=== PATIENT | male | born 1990 ===

== ENCOUNTER 2018-03-17 22:58 | Inpatient (IN) | payer OTHER ==
[2018-03-18 00:01] VITALS: BMI 34.8
--- NOTE | 2018-03-18 00:15 | ED PDOC ---
Arrival/HPI - General Historian: Patient - History of Present Illness Narrative History of Present Illness (Text): 03/18/18 00:10 27 y/o male, no significant pmh, nkda, c/o LLQ pain started today with fever. Pt. has LLQ pain, aching pain, on and off, no night sweat, no rash, no dizziness no change in vision, no palpitation, no other medical or psychological complaints. <Luis Au - Last Filed: 03/18/18 03:06> <Rayshawn Saunders - Last Filed: 03/18/18 04:58> - General Chief Complaint: Abdominal Pain Past Medical History - Provider Review Nursing Documentation Reviewed: Yes - Psychiatric Hx Substance Use: No - Anesthesia Hx Anesthesia: No <Luis Au - Last Filed: 03/18/18 03:06> Family/Social History - Physician Review Nursing Documentation Reviewed: Yes Family/Social History: Unknown Family HX Smoking Status: Never Smoked Hx Alcohol Use: No Hx Substance Use: No <Luis Au - Last Filed: 03/18/18 03:06> Allergies/Home Meds <Luis Au - Last Filed: 03/18/18 03:06> <Rayshawn Saunders - Last Filed: 03/18/18 04:58> Allergies/Adverse Reactions: Allergies No Known Allergies Allergy (Verified 03/18/18 00:02) Home Medications: Home Meds Medication Instructions Recorded Confirmed No Known Home Med 03/18/18 03/18/18 Review of Systems - Review of Systems Constitutional: Fatigue, Fevers Eyes: absent: Vision Changes ENT: absent: Hearing Changes Respiratory: absent: SOB, Cough Cardiovascular: absent: Chest Pain Gastrointestinal: Abdominal Pain. absent: Diarrhea, Nausea, Vomiting Musculoskeletal: absent: Arthralgias, Back Pain Skin: absent: Rash, Pruritis Neurological: absent: Headache Psychiatric: absent: Anxiety, Depression, Suicidal Ideation <Luis Au - Last Filed: 03/18/18 03:06> Physical Exam Vital Signs Reviewed: Yes Vital Signs Temp Pulse Resp BP Pulse Ox 03/18/18 00:04 100.0 F H 115 H 18 132/55 L 96 Temperature: Febrile Blood Pressure: Hypertensive Pulse: Tachycardic Respiratory Rate: Normal Appearance: Positive for: Well-Appearing, Non-Toxic, Comfortable Pain Distress: Moderate Mental Status: Positive for: Alert and Oriented X 3 - Systems Exam Head: Present: Atraumatic, Normocephalic Pupils: Present: PERRL Extroacular Muscles: Present: EOMI Conjunctiva: Present: Normal Ears: Present: NORMAL TM, Normal Canal. No: Erythema Mouth: Present: Moist Mucous Membranes Pharnyx: No: ERYTHEMA, EXUDATE, TONSILS ENLARGED Nose (External): Present: Atraumatic. No: Abrasion, Contusion Nose (Internal): Present: Normal Inspection, No Active Bleeding. No: Rhinorrhea, Septal Hematoma, Epistaxis Neck: Present: Normal Range of Motion, Trachea Midline. No: Meningeal Signs, MIDLINE TENDERNESS, Paraspinal Tenderness, Lymphadenopathy Respiratory/Chest: Present: Clear to Auscultation, Good Air Exchange. No: Respiratory Distress, Accessory Muscle Use Cardiovascular: Present: Regular Rate and Rhythm, Normal S1, S2. No: Murmurs Abdomen: Present: Tenderness (LLQ region). No: Distention, Peritoneal Signs, Rebound, Guarding Back: Present: Normal Inspection. No: CVA Tenderness, Midline Tenderness, Paraspinal Tenderness, Pain with Leg Raise, Decubitus Ulcer Upper Extremity: Present: Normal Inspection, Neurovascularly Intact, Capillary Refill < 2s. No: Cyanosis, Edema, Deformity Lower Extremity: Present: Normal Inspection, Normal ROM, Neurovascularly Intact, Capillary Refill < 2 s. No: Edema, Deformity Neurological: Present: GCS=15, CN II-XII Intact, Speech Normal, Motor Func Grossly Intact, Gait Normal, Memory Normal Skin: Present: Warm, Dry, Normal Color. No: Rashes Psychiatric: Present: Alert, Oriented x 3, Normal Insight, Normal Concentration <Luis Au - Last Filed: 03/18/18 03:06> Vital Signs Temp Pulse Resp BP Pulse Ox 03/18/18 00:30 100.0 F H 03/18/18 00:04 100.0 F H 115 H 18 132/55 L 96 <Rayshawn Saunders - Last Filed: 03/18/18 04:58> Medical Decision Making ED Course and Treatment: 03/18/18 00:19 -labs -CT -IVF/pepcid/tylenol -Observe and reassess 03/18/18 01:28 -another IVF ordered. 03/18/18 03:06 -Rapid flu is negative -Labs show no acute findings except wbc 15.4 -Mg 1.4, low, mgsulfate 2gm IV ordered -Lipase within normal limit. -UA show no UTI. -CT abdomen and pelvis ordered and pending results -Pt. feels better, vitally stable with fever resolved, nontachycardia -Case discussed in detail with the attending Dr. Saunders, he will follow up the pending radiology result and continue the medical care. <AuLuis Kaylen - Last Filed: 03/18/18 03:06> ED Course and Treatment: 03/18/18 04:[address] Vanegas, covering for Dr. Rod, who is aware and agrees with plan. Pt will be admitted to [facility] for acute diverticulitis under Dr. Rod. - RAD Interpretation Narrative RAD Interpretations (Text): CT Abdomen and Pelvis: Bilateral basilar atelectatic pulmonary changes. Acute diverticulitis of the proximal sigmoid without perforation or abscess formation. Prominent surrounding free fluid and inflammatory fat stranding without mass lesion or abscess formation. Bilateral fat containing inguinal hernias without incarceration. The liver is of uniform attenuation without mass or defect. There is no intra or extrahepatic biliary ductal dilatation. The spleen is normal. The gallbladder is within normal limits. The pancreas is of normal contour and attenuation characte ristics. There is no evidence of adrenal mass. Both kidneys demonstrate prompt and equal nephrograms. The kidneys are normal in size, shape and configuration. There is no evidence of renal or ureteral mass. No renal or ureteral calculi are identified. There is no hydroureter or hydronephrosis. No evidence for appendicitis. No evidence for small or large bowel obstruction. There is no evidence of abdominal ascites or lymphadenopathy. There is no evidence of intrinsic or extrinsic bladder mass. There is no pelvic ascites or lymphadenopathy. Images of the lung bases show no evidence of pleural or parenchymal mass. There are no pleural effusions. The bony structures are free of lytic or blastic lesions. IMPRESSION: Bilateral basilar atelectatic pulmonary changes. Acute diverticulitis of the proximal sigmoid without perforation or abscess formation. Prominent surrounding free fluid and inflammatory fat stranding without mass lesion or abscess formation. Bilateral fat containing inguinal hernias without incarceration. Electronically signed on Mar 18, 2018 3:23:26 AM EST by: Russ Robles M.D., Certified by TANG, MSK, Neuroradiology Radiology Orders: 03/18/18 00:16 ABD & PELVIS IV CONTRAST ONLY [CT] Stat Butter Liquefier: Radiologist - Medication Orders Current Medication Orders: Sodium Chloride (Sodium Chloride 0.9%) 1,000 mls @ 999 mls/hr IV .Q1H1M STA Stop: 03/18/18 01:16 Last Admin: 03/18/18 00:40 Dose: 999 mls/hr eMAR Start Stop Document 03/18/18 00:40 AD (Rec: 03/18/18 00:40 AD [id number]) Intravenous Solution Start Date 03/18/18 Start Time 00:40 Discontinued Medications Acetaminophen (Tylenol 325mg Tab) 650 mg PO STAT STA Stop: 03/18/18 00:17 Last Admin: 03/18/18 00:30 Dose: 650 mg MAR Pain/Vitals Document 03/18/18 00:30 AD (Rec: 03/18/18 00:39 AD [id number]) Vitals Temperature (97.6 F-99.6 F) 100.0 F Famotidine (Pepcid) 20 mg IVP STAT STA Stop: 03/18/18 00:19 Last Admin: 03/18/18 00:39 Dose: 20 mg IVP Administration Document 03/18/18 00:39 AD (Rec: 03/18/18 00:40 AD [id number]) Charges for Administration # of IVP Administrations 1 <Rayshawn Saunders - Last Filed: 03/18/18 04:58> - PA / CHANNEL SPECIALIST / Resident Statement BRITTNEE has reviewed & agrees with the documentation as recorded. <Luis Au - Last Filed: 03/18/18 03:06> - PA / CHANNEL SPECIALIST / Resident Statement BRITTNEE has reviewed & agrees with the documentation as recorded. BRITTNEE has examined the patient and agrees with the treatment plan. <Rayshawn Saunders - Last Filed: 03/18/18 04:58> Disposition/Present on Arrival - Present on Arrival Any Indicators Present on Arrival: No History of DVT/PE: No History of Uncontrolled Diabetes: No Urinary Catheter: No History of Decub. Ulcer: No History Surgical Site Infection Following: None - Disposition Have Diagnosis and Disposition been Completed?: Yes Disposition Time: 03:07 <Luis Au - Last Filed: 03/18/18 03:06> - Present on Arrival Any Indicators Present on Arrival: No History of DVT/PE: No History of Uncontrolled Diabetes: No Urinary Catheter: No History of Decub. Ulcer: No History Surgical Site Infection Following: None - Disposition Have Diagnosis and Disposition been Completed?: Yes Disposition Time: 04:15 Patient Plan: Admission <Rayshawn Saunders - Last Filed: 03/18/18 04:58> - Disposition Diagnosis: Leukocytosis, Hypomagnesemia, Acute diverticulitis Disposition: HOSPITALIZED Patient Problems: Current Active Problems Problem Status Onset Acute diverticulitis Acute Hypomagnesemia Acute Leukocytosis Acute Condition: GOOD Forms: [employer] (Nepali)
[2018-03-18] MEDS ORDERED: Sodium Chloride 0.9% 1,000 ML IV STA ×3 (00:16→05:13)
[2018-03-18 00:54] LABS: BASO # 0.01 K/mm3 (0.0-2.0); BASO % 0.1 % (0.0-3.0); EOS % 0.3 % (1.5-5.0); GRAN # 13.58 (1.4-6.5); GRAN % 88.3 % (50.0-68.0); HEMOGLOBIN 14.1 g/dL (14.0-18.0); LYMPH % 6.4 % (22.0-35.0); MEAN CELL VOLUME 82.3 fl (80.0-105.0); MEAN CORPUSCULAR HGB CONC 34.1 g/dl (31.0-37.0); MEAN PLATELET VOLUME 9.8 fl (7.0-11.0); MONO # 0.8 (0.1-0.6); MONO % 4.9 % (1.0-6.0); RBC 5.03 10^6/uL (3.5-6.1); RED CELL DISTRIBUTION WIDTH 12.5 % (11.5-14.5); WHITE BLOOD COUNT 15.4 10^3/uL (4.5-11.0)
[2018-03-18 01:01] LABS: ALBUMIN 4.6 g/dL (3.0-4.8); BLOOD UREA NITROGEN 11 mg/dL (7-21); CALCIUM 9.2 mg/dL (8.4-10.5); GFR NON-AFRICAN AMERICAN > 60
[2018-03-18 01:02] LABS: ALB/GLOB RATIO 1.3 (1.1-1.8); ALT/SGPT 84 U/L (7-56); AST/SGOT 50 U/L (17-59); LIPASE 29 U/L (23-300)
[2018-03-18] MEDS ORDERED: Magnesium Sulfate 2 gm/50 ml 2 GM/50 ML BAG IVPB ONE (01:06)
[2018-03-18 02:15] LABS: URINE APPEARANCE CLEAR (CLEAR); URINE BILIRUBIN NEGATIVE (NEGATIVE); URINE BLOOD NEGATIVE (NEGATIVE); URINE COLOR YELLOW (YELLOW); URINE GLUCOSE (UA) NEGATIVE (NEGATIVE); URINE LEUKOCYTE ESTERASE NEGATIVE Leu/uL (NEGATIVE); URINE PROTEIN 30 mg/dL (<30 mg/dL); URINE UROBILINOGEN 0.2 E.U./dL (<1 E.U./dL)
[2018-03-18 02:32] LABS: URINE EPITHELIAL CELLS 0 - 2 /hpf (0-5); URINE RBC 0 - 2 /hpf (0-2); URINE WBC 0 - 2 /hpf (0-6)
[2018-03-18] MEDS ORDERED: metroNIDAZOLE IV 500 mg/100 ml 500 MG/100 ML BAG IVPB STA (04:18)
[2018-03-18] MEDS ORDERED: cefTRIAXone 1 gm 1 GM/100 ML BAG IV STA (04:18)
--- NOTE | 2018-03-18 08:29 | CT ---
Date of service: 03/18/2018 PROCEDURE: CT Abdomen and Pelvis with contrast HISTORY: LLQ pain COMPARISON: None. TECHNIQUE: Intravenous contrast dose: 100 cc Omnipaque 350. Radiation dose: Total exam DLP = 1142.43 mGy-cm. This CT exam was performed using one or more of the following dose reduction techniques: Automated exposure control, adjustment of the mA and/or kV according to patient size, and/or use of iterative reconstruction technique. FINDINGS: LOWER THORAX: Unremarkable. LIVER: Unremarkable. No gross lesion or ductal dilatation. GALLBLADDER AND BILE DUCTS: Unremarkable. PANCREAS: Unremarkable. No gross lesion or ductal dilatation. SPLEEN: Unremarkable. ADRENALS: Unremarkable. No mass. KIDNEYS AND URETERS: Unremarkable. No hydronephrosis. No solid mass. VASCULATURE: Unremarkable. No aortic aneurysm. No atherosclerotic calcification or mural plaque present. BOWEL: Segmental inflammatory changes affecting the distal descending colon and sigmoid colon with sparing of the rectum. The findings are likely acute diverticulitis. Severe inflammatory changes in the pericolonic fat. No drainable collection, loculated air or free air. APPENDIX: Normal appendix. PERITONEUM: Unremarkable. No free fluid. No free air. LYMPH NODES: Unremarkable. No enlarged lymph nodes. BLADDER: Unremarkable. REPRODUCTIVE: Unremarkable. BONES: No acute fracture. OTHER FINDINGS: None. IMPRESSION: Acute sigmoid diverticulitis, severe without complications. Concordant results (preliminary interpretation) provided by [employer]. Procedure Completed: 02:01. Preliminary Report: Dictated and Authenticated: 03:23. Final Interpretation: 08:24.
--- NOTE | 2018-03-18 09:32 | CP.PCM.CON ---
History of Present Illness - History of Present Illness History of Present Illness: PGY6 GI Fellow Consult Note Patient is a 27yo male with PMHx significant for diverticulitis, obesity who presents with one day of abdominal pain. Pain began suddenly last night at 7PM and was located in the left lower quadrant along with subjective fever. Pain was too severe to tolerate at home, thus patient came to the ED for further evaluation. He denies any nausea, vomiting or diarrhea. Did note intermittent constipation with passage of small amount of solid stool in the days prior to admission. In the ED a CT performed revealed acute sigmoid diverticulitis and patient was initiated on Ceftriaxone/Flagyl and made NPO. Presently, symptoms have improved and he has increased appetite. Denies any weight loss, rectal bleeding, recent travel or sick contacts. 12 system ROS performed and negative except where stated PMHx: See HPI PSHx: Discussed with patient and he denies FHx: Father - COPD Social: Denies tobacco, EtOH or illicit drug use Endo: Colonoscopy ~7 months ago - unremarkable per patient, records unavailable for review Past Patient History - Past Social History Smoking Status: Never Smoked - CARDIAC Hx Cardiac Disorders: No - PULMONARY Hx Respiratory Disorders: No - NEUROLOGICAL Hx Neurological Disorder: No - HEENT Hx HEENT Problems: No - RENAL Hx Chronic Kidney Disease: No - ENDOCRINE/METABOLIC Hx Endocrine Disorders: No - HEMATOLOGICAL/ONCOLOGICAL Hx Blood Disorders: No - INTEGUMENTARY Hx Dermatological Problems: No - MUSCULOSKELETAL/RHEUMATOLOGICAL Hx Falls: No - GASTROINTESTINAL Hx Diverticulitis: Yes - GENITOURINARY/GYNECOLOGICAL Hx Genitourinary Disorders: No - PSYCHIATRIC Hx Substance Use: No - SURGICAL HISTORY Hx Surgeries: No - ANESTHESIA Hx Anesthesia: No Meds Allergies/Adverse Reactions: Allergies Allergy/AdvReac Type Severity Reaction Status Date / Time No Known Allergies Allergy Verified 03/18/18 00:02 - Medications Medications: Current Medications Sodium Chloride (Sodium Chloride 0.9%) 1,000 mls @ 100 mls/hr IV .Q10H STA Stop: 03/18/18 15:12 Last Admin: 03/18/18 05:30 Dose: 100 mls/hr Physical Exam - Constitutional Appears: Non-toxic, No Acute Distress - Eye Exam Eye Exam: EOMI, PERRL - ENT Exam ENT Exam: Mucous Membranes Moist - Respiratory Exam Respiratory Exam: Clear to Auscultation Bilateral. absent: Rales, Rhonchi, Wheezes - Cardiovascular Exam Cardiovascular Exam: RRR, +S1, +S2 - GI/Abdominal Exam GI & Abdominal Exam: Normal Bowel Sounds, Soft, Tenderness (LLQ). absent: Distended, Firm, Guarding, Organomegaly, Rigid - Extremities Exam Extremities exam: Positive for: normal inspection. Negative for: pedal edema - Neurological Exam Neurological exam: Alert, Oriented x3 - Psychiatric Exam Psychiatric exam: Normal Affect, Normal Mood - Skin Skin Exam: Dry, Warm Results - Vital Signs Recent Vital Signs: Last Vital Signs Temp 99.4 F 03/18/18 06:00 Pulse 95 H 03/18/18 06:00 Resp 18 03/18/18 08:03 BP 127/82 03/18/18 06:00 Pulse Ox 100 03/18/18 06:00 - Labs Result Diagrams: 03/18/18 00:37 03/18/18 00:37 Labs: Laboratory Results - last 24 hr 03/18/18 03/18/18 03/18/18 00:15 00:37 00:37 WBC 15.4 H RBC 5.03 Hgb 14.1 Hct 41.4 L MCV 82.3 MCH 28.0 MCHC 34.1 RDW 12.5 Plt Count 239 MPV 9.8 Gran % 88.3 H Lymph % (Auto) 6.4 L [place] % (Auto) 4.9 Eos % (Auto) 0.3 L Baso % (Auto) 0.1 Gran # 13.58 H Lymph # (Auto) 1.0 L [place] # (Auto) 0.8 H Eos # (Auto) 0.0 Baso # (Auto) 0.01 Sodium 135 Potassium 3.9 Chloride 99 Carbon Dioxide 25 Anion Gap 14 BUN 11 Creatinine 0.8 Est GFR ( Amer) > 60 Est GFR (Non-Af Amer) > 60 Random Glucose 222 H Calcium 9.2 Magnesium 1.4 L Total Bilirubin 1.1 AST 50 ALT 84 H Alkaline Phosphatase 71 Total Protein 8.1 Albumin 4.6 Globulin 3.5 Albumin/Globulin Ratio 1.3 Lipase 29 Urine Color Urine Appearance Urine pH Ur Specific [place] Urine Protein Urine Glucose (UA) Urine Ketones Urine Blood Urine Nitrate Urine Bilirubin Urine Urobilinogen Ur Leukocyte Esterase Urine RBC Urine WBC Ur Epithelial Cells Urine Bacteria Influenza Typ A,B (EIA) Negative for flu a/b 03/18/18 01:38 WBC RBC Hgb Hct MCV MCH MCHC RDW Plt Count MPV Gran % Lymph % (Auto) [place] % (Auto) Eos % (Auto) Baso % (Auto) Gran # Lymph # (Auto) [place] # (Auto) Eos # (Auto) Baso # (Auto) Sodium Potassium Chloride Carbon Dioxide Anion Gap BUN Creatinine Est GFR ( Amer) Est GFR (Non-Af Amer) Random Glucose Calcium Magnesium Total Bilirubin AST ALT Alkaline Phosphatase Total Protein Albumin Globulin Albumin/Globulin Ratio Lipase Urine Color Yellow Urine Appearance Clear Urine pH 6.0 Ur Specific [place] >= 1.030 Urine Protein 30 H Urine Glucose (UA) Negative Urine Ketones Negative Urine Blood Negative Urine Nitrate Negative Urine Bilirubin Negative Urine Urobilinogen 0.2 Ur Leukocyte Esterase Negative Urine RBC 0 - 2 Urine WBC 0 - 2 Ur Epithelial Cells 0 - 2 Urine Bacteria None Influenza Typ A,B (EIA) Assessment & Plan - Assessment and Plan (Free Text) Assessment: Patient is a 27yo male with PMHx significant for diverticulitis, obesity who presents with one day of abdominal pain -Acute sigmoid diverticulitis -Hyperglycemia and proteinuria R/O diabetes mellitus with diabetic nephropathy Plan: -Acute sigmoid diverticulitis noted on imaging, c/w physical exam and history -Recommend ongoing antibiotic therapy with Ceftriaxone/Flagyl - can be changed to PO on D/C for total of 7 days therapy -S/P recent colonoscopy without significant findings per patient, encourage follow up with outpatient bus system operator following discharge -Full liquid diet ordered, advance as tolerated - Date & Time Date: 03/18/18 Time: 07:35
[2018-03-18] MEDS ORDERED: HYDROmorphone 2 mg/ml ISec IVP PRN (10:14)
[2018-03-18] MEDS: cefTRIAXone 1 gm 1 GM/100 ML BAG IVPB SCH (12:44)
[2018-03-18] MEDS: metroNIDAZOLE IV 500 mg/100 ml 500 MG/100 ML BAG IVPB SCH ×2 (13:29→21:55)
[2018-03-18] MEDS ORDERED: DiphenhydrAMINE 50 mg/ml Inj IVP STA (18:45)
[2018-03-19] MEDS: metroNIDAZOLE IV 500 mg/100 ml 500 MG/100 ML BAG IVPB SCH ×3 (05:03→22:19)
[2018-03-19 06:39] LABS: BASO # 0.01 K/mm3 (0.0-2.0); BASO % 0.2 % (0.0-3.0); GRAN # 5.14 (1.4-6.5); GRAN % 77.5 % (50.0-68.0); LYMPH # 0.9 (1.2-3.4); LYMPH % 13.7 % (22.0-35.0); MEAN CORPUSCULAR HGB CONC 33.8 g/dl (31.0-37.0); MEAN PLATELET VOLUME 9.6 fl (7.0-11.0); MONO # 0.6 (0.1-0.6); MONO % 8.6 % (1.0-6.0); RBC 4.64 10^6/uL (3.5-6.1); RED CELL DISTRIBUTION WIDTH 12.6 % (11.5-14.5); WHITE BLOOD COUNT 6.6 10^3/uL (4.5-11.0)
[2018-03-19 06:47] LABS: ALB/GLOB RATIO 1.3 (1.1-1.8); ALBUMIN 4.1 g/dL (3.0-4.8); ALT/SGPT 56 U/L (7-56); AST/SGOT 37 U/L (17-59); BLOOD UREA NITROGEN 8 mg/dL (7-21); CALCIUM 8.7 mg/dL (8.4-10.5); GFR NON-AFRICAN AMERICAN > 60
[2018-03-19] MEDS: cefTRIAXone 1 gm 1 GM/100 ML BAG IVPB SCH (09:13)
--- NOTE | 2018-03-19 09:13 | RAD ---
Date of service: 03/18/2018 HISTORY: SOB COMPARISON: No prior. FINDINGS: LUNGS: No active pulmonary disease. PLEURA: No significant pleural effusion identified, no pneumothorax apparent. CARDIOVASCULAR: No aortic atherosclerotic calcification present. Normal cardiac size. No pulmonary vascular congestion. OSSEOUS STRUCTURES: No significant abnormalities. VISUALIZED UPPER ABDOMEN: Normal. OTHER FINDINGS: None. IMPRESSION: No active disease.
--- NOTE | 2018-03-19 14:36 | CP.PCM.PN ---
<Torin Frazier - Last Filed: 03/19/18 14:31> Subjective - Date & Time of Evaluation Date of Evaluation: 03/19/18 Time of Evaluation: 11:35 - Subjective Subjective: PGY-4 GI Fellow Consult Note Pt lying in bed when seen this AM. Tolerating liq diet without issue. Javy temp last night to 101. 5 point ROS negative other than stated above Objective - Vital Signs/Intake and Output Vital Signs (last 24 hours): Temp Pulse Resp BP Pulse Ox 99.9 F H 109 H 18 117/76 94 L 03/19/18 08:06 03/19/18 08:06 03/19/18 08:06 03/19/18 08:06 03/19/18 08:06 Intake and Output: 03/19/18 03/19/18 06:59 18:59 Intake Total 440 Output Total 650 Balance -210 - Medications Medications: Current Medications Acetaminophen (Tylenol 325mg Tab) 650 mg PO Q4H PRN PRN Reason: Fever >100.4 F Last Admin: 03/18/18 16:26 Dose: 650 mg Hydromorphone HCl (Dilaudid) 1 mg IVP Q4H PRN PRN Reason: Pain, moderate (4-7) Metronidazole (Flagyl) 500 mg in 100 mls @ 100 mls/hr IVPB Q8 [facility]; Protocol Last Admin: 03/19/18 05:03 Dose: 100 mls/hr Ceftriaxone Sodium (Rocephin 1 Gram Ivpb) 1 gm in 100 mls @ 100 mls/hr IVPB DAILY [facility]; Protocol Last Admin: 03/19/18 09:13 Dose: 100 mls/hr Pantoprazole Sodium (Protonix Inj) 40 mg IVP DAILY [facility] Last Admin: 03/19/18 09:13 Dose: 40 mg - Labs Labs: 03/19/18 05:30 03/19/18 05:30 - Constitutional Appears: Well, No Acute Distress - Head Exam Head Exam: ATRAUMATIC, NORMAL INSPECTION - Eye Exam Eye Exam: EOMI. absent: Conjunctival injection, Scleral icterus - ENT Exam ENT Exam: Mucous Membranes Moist. absent: Mucous Membranes Dry - Respiratory Exam Respiratory Exam: NORMAL BREATHING PATTERN. absent: Accessory Muscle Use, Respiratory Distress - GI/Abdominal Exam GI & Abdominal Exam: Soft, Normal Bowel Sounds. absent: Bruit, Distended, Firm, Guarding, Rigid, Tenderness, Mass, Organomegaly, Pulsatile Mass Assessment and Plan - Assessment and Plan (Free Text) Assessment: 27yo male with PMHx significant for diverticulitis, obesity who presents with one day of abdominal pain -Acute sigmoid diverticulitis: 2nd episode in one year, uncomplicated, severe on imaging -Hyperglycemia and proteinuria R/O diabetes mellitus with diabetic nephropathy Plan: - Cont Ceftriaxone/Flagyl Metronidazole - Full liquid diet today --- May advance on 03/10 if continues to improve and afebrile - May need to broaden Abx if continues to spike temps through tomorrow - Will consider surgical evaluation for possible resection Pt seen and examined with Dr. Knott; please see attestation for further recs/changes. Torin Frazier, PGY-4 <Hector Knott V - Last Filed: 03/19/18 22:32> Objective - Vital Signs/Intake and Output Vital Signs (last 24 hours): Temp Pulse Resp BP Pulse Ox 98.8 F 102 H 20 127/78 94 L 03/19/18 17:25 03/19/18 17:25 03/19/18 17:25 03/19/18 17:25 03/19/18 17:25 - Medications Medications: Current Medications Acetaminophen (Tylenol 325mg Tab) 650 mg PO Q4H PRN PRN Reason: Fever >100.4 F Last Admin: 03/19/18 20:03 Dose: 650 mg Hydromorphone HCl (Dilaudid) 1 mg IVP Q4H PRN PRN Reason: Pain, moderate (4-7) Metronidazole (Flagyl) 500 mg in 100 mls @ 100 mls/hr IVPB Q8 [facility]; Protocol Last Admin: 03/19/18 15:10 Dose: 100 mls/hr Ceftriaxone Sodium (Rocephin 1 Gram Ivpb) 1 gm in 100 mls @ 100 mls/hr IVPB D AILY [facility]; Protocol Last Admin: 03/19/18 09:13 Dose: 100 mls/hr Pantoprazole Sodium (Protonix Inj) 40 mg IVP DAILY [facility] Last Admin: 03/19/18 09:13 Dose: 40 mg - Labs Labs: 03/19/18 05:30 03/19/18 05:30 Attending/Attestation - Attestation I have personally seen and examined this patient.: Yes I have fully participated in the care of the patient.: Yes I have reviewed all pertinent clinical information, including history, physical exam and plan: Yes Notes (Text): This is an addendum to GI progress report dictated by the GI Fellow. The patient was seen and examined earlier. Medical records, lab studies, imagings were reviewed. Last 24 hours events reviewed. Agreed with the above treatment plan as outlined in GI Fellow 's notes with the addition of the following patient is still spiking temperature On examination abdomen soft no significant tenderness CT scan showed significant inflammatory changes Patient had a recurrent diverticulitis Had colonoscopy done Patient is being followed by his ball maker as an outpatient We will hold off advancing the diet today and advance to soft diet tomorrow if he remains afebrile for 24hr We will hold off surgical evaluation at the present time The decision about surgery in future will be based on patient's clinical course 03/19/18 22:12
--- NOTE | 2018-03-19 20:11 | HP ---
DATE OF EXAM: 03/19/2018 HISTORY OF PRESENT ILLNESS: This is a 27-year-old male who is coming to the hospital with complaints of left lower quadrant pain. The patient says that he was having pain that was 5 to 6/10. He had no night sweats. He had no fevers or chills. He does have a history of diverticulitis. He had a colonoscopy about 7 months ago. He said the pain initially started about 7 p.m. at night prior to coming in. He states he felt he was feverish. He was not able to tolerate the pain at home and came in for further evaluation. He was having small amounts of stool. He was given antibiotics in the emergency room and made n.p.o. and was admitted to hospital for further evaluation. He has no nausea or vomiting. He says his pain is better this morning. He was seen by GI yesterday. He has no weakness in the arms or the legs. ALLERGIES: NO KNOWN DRUG ALLERGIES. PAST MEDICAL HISTORY: Diverticulitis. FAMILY HISTORY: Father had COPD. SOCIAL HISTORY: He denies smoking, drinking or drugs. REVIEW OF SYSTEMS: All of the review of systems are within normal limits except as mentioned. PHYSICAL EXAMINATION: VITAL SIGNS: He has a T-max of 101. The patient's pulse is 109, blood pressure is 117/76, O2 saturation 94%, height is 5 feet 9 inches, weight is 236 pounds, BMI is 34.9. GENERAL: The patient lying in bed, uncomfortable, and in no acute distress. HEENT: Atraumatic and normocephalic. Anicteric sclerae. Moist mucosa. [place] conjunctivae. No oral lesions. NECK: No JVD, anterior and posterior adenopathy, thyromegaly, or bruits. CARDIOVASCULAR: S1 and S2 regular. No murmur, rubs, or gallop. LUNGS: Clear to auscultation bilaterally. No wheezes, rales, or rhonchi. ABDOMEN: Bowel sounds are positive. Soft, nontender and nondistended. No hepatosplenomegaly. No rebound and no guarding EXTREMITIES: No cyanosis, clubbing, or edema. NEUROLOGIC: No facial asymmetry. Tongue is midline. No vulva deviation. Power is 5/5 upper extremity and lower extremity. Sensation intact in upper extremity and lower extremity. PSYCHIATRIC: He is awake, alert and oriented x3. No anxiety or depression. He has normal affect. GENITOURINARY: No CVA tenderness. VASCULAR: 2+ pulses in the carotid pulses and pedal pulses. SKIN: No erythema or nodules SPINE: Shows normal curvature. LABORATORY DATA: White count of 15.4, hemoglobin 14.1, platelet count is 239. Chemistry shows sodium of 135, creatinine 0.8, magnesium is 1.4. Urine shows ketones are negative, blood is negative. Protein is 30. Specific gravity is 1.030. Serology shows influenza is negative. Chest x-ray done shows no active disease. CT of the abdomen and pelvis done shows acute sigmoid diverticulitis. ASSESSMENT: 1. Acute diverticulitis. 2. Sepsis. 3. Obese with a BMI of 35. 4. Hypomagnesemia. PLAN: The patient is currently admitted to the hospital. Blood and urine cultures have been ordered. The patient was given antibiotics with Flagyl and Rocephin in the ER. He is going to be continued. He is on Tylenol as needed. He is on liquid diet. The patient was given Protonix. He is being followed by Dr. Knott from GI. The patient is currently, improving. He will continue to stay in the hospital. I did review the note from the GI fellow. Manjit Rod MD
[2018-03-20] MEDS: metroNIDAZOLE IV 500 mg/100 ml 500 MG/100 ML BAG IVPB SCH ×2 (06:39→13:35)
[2018-03-20 08:34] VITALS: RESP 18; O2SAT 96
[2018-03-20] MEDS: cefTRIAXone 1 gm 1 GM/100 ML BAG IVPB SCH (10:18)
[2018-03-20 11:03] VITALS: BP 110/67; PULSE 98; TEMP 97.7
[2018-03-20] MEDS ORDERED: Magnesium Sulfate 2 gm/50 ml 2 GM/50 ML BAG IV ONE (11:52)
--- NOTE | 2018-03-20 17:47 | CP.PCM.PN ---
<Torin Frazier - Last Filed: 03/20/18 17:44> Subjective - Date & Time of Evaluation Date of Evaluation: 03/20/18 Time of Evaluation: 11:30 - Subjective Subjective: PGY-4 GI Fellow Prog Note Pt lying in bed when seen this AM. Denied abd pain, N/V. Tolerating diet and reports BMs without difficulty. Tmax 99.9 in last 24 hrs. Eager to advance diet and possible DC. 5 point ROS negative other than stated above Objective - Vital Signs/Intake and Output Vital Signs (last 24 hours): Temp Pulse Resp BP Pulse Ox 97.7 F 98 H 18 110/67 96 03/20/18 11:01 03/20/18 11:01 03/20/18 08:32 03/20/18 11:01 03/20/18 11:01 Intake and Output: 03/20/18 03/20/18 06:59 18:59 Intake Total 240 Balance 240 - Labs Labs: 03/19/18 05:30 03/19/18 05:30 - Constitutional Appears: Well, No Acute Distress - Head Exam Head Exam: ATRAUMATIC, NORMAL INSPECTION - Eye Exam Eye Exam: EOMI. absent: Scleral icterus - ENT Exam ENT Exam: Mucous Membranes Moist. absent: Mucous Membranes Dry - Respiratory Exam Respiratory Exam: NORMAL BREATHING PATTERN. absent: Accessory Muscle Use, Respiratory Distress - GI/Abdominal Exam GI & Abdominal Exam: Soft, Normal Bowel Sounds. absent: Bruit, Distended, Firm, Guarding, Rigid, Tenderness, Mass, Organomegaly, Pulsatile Mass, Rebound Assessment and Plan - Assessment and Plan (Free Text) Assessment: 27yo male with PMHx significant for diverticulitis, obesity who presents with one day of abdominal pain -Acute sigmoid diverticulitis: 2nd episode in one year, uncomplicated, severe on imaging -Hyperglycemia and proteinuria R/O diabetes mellitus with diabetic nephropathy Plan: - Advance diet and OK to DC with PO antibiotic course - Counseled pt to f/u with primary GI doc regarding possible recurrent diverticulitis to discuss possible surgical options if indicated. Pt seen and examined with Dr. Knott; please see attestation for further recs/changes. Torin Frazier, PGY-4 <Hector Knott V - Last Filed: 03/21/18 00:14> Objective - Vital Signs/Intake and Output Vital Signs (last 24 hours): Temp Pulse Resp BP Pulse Ox 97.7 F 98 H 18 110/67 96 03/20/18 11:01 03/20/18 11:01 03/20/18 08:32 03/20/18 11:01 03/20/18 11:01 - Labs Labs: 03/19/18 05:30 03/19/18 05:30 Attending/Attestation - Attestation I have personally seen and examined this patient.: Yes I have fully participated in the care of the patient.: Yes I have reviewed all pertinent clinical information, including history, physical exam and plan: Yes Notes (Text): This is an addendum to GI progress report dictated by the GI Fellow. The patient was seen and examined earlier. Medical records, lab studies, imagings were reviewed. Last 24 hours events reviewed. Agreed with the above treatment plan as outlined in GI Fellow 's notes with the addition of the following patient is doing very well Patient wants to go home No complaints of abdominal pain Advance diet Patient was advised to continue the antibiotic course given prescription for Augmentin and Flagyl importance of outpatient GI follow-up was recommended Discussed with the patient and patient's family at length 03/21/18 00:13
--- NOTE | 2018-03-21 02:20 | DS ---
HISTORY OF PRESENT ILLNESS: This is a 27-year-old male who had come to the hospital complaining abdominal pain. He was found to have acute diverticulitis. The patient was started on IV antibiotics. He was made n.p.o. and then started on clear liquid diet. He did have improvement of his symptoms. He is feeling better. He is able to tolerate his liquid diet, this will be advanced. He has no complaints of any chest pain, no shortness of breath. No nausea, no vomiting. 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 PHYSICAL EXAMINATION: VITAL SIGNS: Temperature is 97.7, pulse of 98, blood pressure 110/67, respirations 18 and O2 saturation 96%. GENERAL: The patient is lying in bed, flat, comfortable. HEENT: No oral lesion. Anicteric sclerae. Moist mucosa. NECK: No JVD, adenopathy, or thyromegaly. CARDIOVASCULAR: S1 and S2, regular. No murmurs, rubs, or gallops. LUNGS: Clear to auscultation bilaterally. No wheeze, rales, or rhonchi. ABDOMEN: Bowel sounds are positive, soft, nontender and nondistended. EXTREMITIES: No cyanosis, clubbing or edema. LABORATORY DATA: His white count is 6.6 and hemoglobin 13. Sodium is 136 and potassium 3.7. The patient's magnesium is 1.4. ASSESSMENT: 1. Acute diverticulitis. 2. Obese with body mass index of 35. 3. Hypomagnesemia. PLAN: The patient is currently comfortable. He had urine cultures, blood cultures that were negative. The patient does not have sepsis. The patient is not requiring pain medication at this point. We will discontinue his pain medications. He is on Flagyl and Rocephin. I will continue oral antibiotics. CONDITION: Stable. ACTIVITIES: Increase as tolerated. FOLLOWUP: 1. Follow up with primary care doctor 1-2 weeks. 2. Follow up GI in 1-2 weeks. Manjit Rod MD
--- NOTE | 2018-03-21 09:22 | HP ---
DATE OF EXAM: 03/18/2018 HISTORY OF PRESENT ILLNESS: The patient is 27 years old, the patient of Dr. Cabrera came to emergency room because of increasing abdominal pain. The patient states he was having this intermittent pain for few days, but last night it got worse; so he came to emergency room for further evaluation. The patient does know that he has diverticulosis. He states pain started around 07:00 o'clock after he had macaroni and cheese, but slowly pain got worse. So, he came to ER, complained of intermittent constipation. Denies any rectal bleeding. No history of diarrhea. PAST MEDICAL HISTORY: Significant for childhood asthma; otherwise, he is doing well. His father has history of COPD. ALLERGIES: HE IS NOT ALLERGIC TO ANY MEDICATIONS. MEDICATIONS AT HOME: He really does not take any medication other than taking Advil or Tylenol here and there. SOCIAL HISTORY: Denies smoking, drinking or alcohol use. REVIEW OF SYSTEMS: Significant for mild shortness of breath and left-sided chest pain upon coughing. PHYSICAL EXAMINATION: GENERAL: He is awake, alert, oriented, communicative. VITAL SIGNS: He has temperature of 99.4, later on he spiked fever of 101; pulse 107; respirations 20; blood pressure 121/72. LUNGS: Bilateral fair airflow. No rhonchi or crackle. HEART: S1, S2 audible. ABDOMEN: Soft. Left lower quadrant discomfort. He states pain is much better than compared to when he came in. NEUROLOGIC: He is awake, alert, oriented, communicative. LABORATORY DATA: WBC is 15.4, hemoglobin 14, hematocrit 41, platelet 239. Chemistries: Sodium 135, potassium 3.9, chloride 99, CO2 of 25, BUN 11, creatinine 0.8, blood sugar of 222. Flu test is negative. CT scan of the abdomen and pelvis was done that shows segmental inflammatory changes affecting distal descending colon and sigmoid colon with sparing of rectum, findings consistent with diverticulitis, severe inflammatory changes and pericolic fat. ASSESSMENT: 1. Descending diverticulitis. 2. Leukocytosis. 3. Muscular chest pain. PLAN: We will start the patient on metronidazole; give him analgesic, he is on Protonix, he is on IV Rocephin, IV fluid, Zofran as needed. He is on liquid diet. GI evaluation by Dr. Knott has been requested. Sai Vanegas MD [facility] # [id number]
== END 2018-03-20 15:46 | disposition home or self-care (01) | DRG 392 ==
LOC: ED 22:58 → ERH 03-18 05:09 → 3RSO 03-18 06:32 → 3RNO 03-18 10:26
PROVIDERS: ADMIT Internal Medicine Nephrology; ATTEND Internal Medicine Nephrology
DX: K57.32 Diverticulitis of large intestine without perforation or abscess without bleeding (principal); Z68.35 Body mass index [BMI] 35.0-35.9, adult; E66.9 Obesity, unspecified; E83.42 Hypomagnesemia; K59.00 Constipation, unspecified; R07.9 Chest pain, unspecified; R80.9 Proteinuria, unspecified; R73.9 Hyperglycemia, unspecified